=== PATIENT | female | born 1985 | race American Indian/Alaskan Native ===

== ENCOUNTER 2016-05-16 19:43 | Inpatient (IN) | payer OTHER ==
[2016-05-16] MEDS ORDERED: cefOXitin IV 2 gm in Dextrose 50 ML IVPB ONE (20:15)
[2016-05-16] MEDS: Lactated Ringer's 1,000 ML IV SCH (20:15)
[2016-05-16] MEDS ORDERED: Sodium Citrate/Citric Acid 15 ml Sol PO ONE (20:18)
--- NOTE | 2016-05-16 20:28 | OBADHP ---
Datetime: 05/16/2016 20:12 IP Adm Impression Other: 2 previous csection Admit Comment, IP Provider: chief complaint-contractions HPI 30 y/o at 38 wga here with c/o abdominal pain on_ff through the day.Patient felt it makeda aponte hence she came in for evaluation course -uncomplicated as per patient; hx of deliveryx2 PMH congenita; heart murmur PSH csectionx2 OBGYN HX ; delivery at 35 weeks via csection.Infant weighed 4.12 pounds; de livery at 36 weeks . weighed 5.9 pounds Social hx denies tobacco,alcohol or illicit drug use Exam see exam section FHT 150S, mod inna, +decel for 7 min.patient position chnaged, oxygen given and patient examined.ce rvix 2 cm dilated.patient turned to both right lateral and left lateral position and then put in tren [place] position.OR opened.FHR back to baseline of 150s.Anesthesia in room.fhr back to baseline fo 150s with moderate variability A/P 30 y/o at 38 wga, with 2 previous csections here with c/o abdominal pain.Early labor -admit -see orders Pelvic Type - PN: Adequate Extremities - PN: Normal Abdomen - PN: Normal Back - PN: Normal Lungs - PN: Normal Heart - PN: Normal Neurologic - PN: Normal General - PN: Normal IP Fetus A Comments: decel for 7 min FHR - Baseline A Provider: 150 Gestation - Est Wks by US: 38.0 IP Hx Assessment: The History has been Reviewed and is Current Vital Signs Provider: Reviewed IP Chief Complaint: Uterine contractions NICHD Variability Prov Fetus A: Moderate 6-25bpm Dilatation, Provider: 2 Effacement, Provider: 70 Station, Provider: -2 Genitourinary Exam: Normal DTRs - PN: Normal EGA AdmitDate IP: 38.0 IP Adm Impression: Term, intrauterine ; Active labor IP Admit Plan: Admit to unit; Initiate Section protocol Datetime: 03/26/2016 13:22 Breast - PN: Normal Membranes, Provider: Intact Contraction Comments Provider: none Comments, ACOG Physical Exam: Abd: Soft, NT, Bs- present NICHD Accel Fetus A IP Provider: [id number] FHR Category Provider Fetus A: Category I NICHD Decel Fetus A IP Provider: None
[2016-05-16 20:36] LABS: BASO % 0.5 % (0.0-2.0); EOS % 0.4 % (0.0-4.0); HEMATOCRIT 31.3 % (34.0-47.0); LYMPH % 23.5 % (20.0-40.0); MEAN CORPUSCULAR HEMOGLOBIN 26.8 pg (27.0-31.0); MEAN CORPUSCULAR HGB CONC 32.5 g/dL (33.0-37.0); MEAN PLATELET VOLUME 8.7 fL (7.2-11.7); MONO # 0.9 K/uL (0.0-0.8); MONO % 10.7 % (0.0-10.0); NRBC % 0.1 % (0.0-2.0); RED CELL DISTRIBUTION WIDTH 14.5 % (11.5-14.5); WHITE BLOOD COUNT 8.4 K/uL (4.8-10.8)
[2016-05-16 20:39] LABS: MEAN CELL VOLUME 82.5 fL (81.0-99.0)
[2016-05-16 20:41] LABS: CHLORIDE 100 mmol/L (98-107); POTASSIUM 3.6 mmol/L (3.6-5.2); SODIUM 136 mmol/L (132-148)
[2016-05-16 20:43] LABS: ALB/GLOB RATIO 1.1 (1.0-2.1); AST/SGOT 18 U/L (14-36); BILIRUBIN,TOTAL 0.2 mg/dL (0.2-1.3); CARBON DIOXIDE 22 mmol/L (22-30); GFR AFRICAN-AMERICAN > 60; TOTAL PROTEIN 7.4 g/dL (6.3-8.3)
[2016-05-16 20:44] LABS: ALKALINE PHOSPHATASE 142 U/L (38-126); ALT/SGPT 8 U/L (9-52); BLOOD UREA NITROGEN 5 mg/dL (7-17); CALCIUM 8.9 mg/dl (8.6-10.4); GLUCOSE,RANDOM 77 mg/dL (65-105)
[2016-05-16 20:51] LABS: RBC URINE < 1 /hpf (0-3); URINE BACTERIA OCC (<OCC); URINE BILIRUBIN NEGATIVE (NEGATIVE); URINE BLOOD NEGATIVE (NEGATIVE); URINE COLOR Yellow (YELLOW); URINE GLUCOSE (UA) NORMAL (Normal); URINE KETONE TRACE mg/dL (NEGATIVE); URINE LEUKOCYTE ESTERASE TRACE Leu/uL (Negative); URINE PROTEIN NEGATIVE (NEGATIVE); URINE UROBILINOGEN NORMAL mg/dL (0.2-1.0); WBC URINE 2 /hpf (0-5)
[2016-05-16] MEDS ORDERED: Oxycodone/Acetaminophen 5/325 mg Tab PO PRN (21:09)
[2016-05-16] MEDS ORDERED: Naloxone 0.4 mg/ml Inj (Adult) IVP PRN (22:23)
[2016-05-17] MEDS: Simethicone 80 mg Chewtab PO SCH ×5 (03:24→21:44)
[2016-05-17] MEDS: cefOXitin IV 2 gm in Dextrose 50 ML IVPB SCH ×3 (03:38→20:06)
--- NOTE | 2016-05-17 07:23 | OP ---
PROCEDURE DATE: 05/16/2016 PREOPERATIVE DIAGNOSES: 1. Two previous sections, in labor. 2. at 38 weeks gestational age. POSTOPERATIVE DIAGNOSES: 1. Two previous sections, in labor. 2. at 38 weeks gestational age. PROCEDURE PERFORMED: Repeat low transverse section. SURGEON: Ta Allan MD ENVIRONMENTAL ISSUES INSTRUCTOR: Manohar Ladd MD. Please note that the procedure required a surgical supervisor to assist with the entry into the abdominal cavity, to assist with the delivery of the infant and to assist wit h the closure of the abdominal tissues. The surgical supervisor was present and scrubbed for the enti re duration of the procedure. ANESTHESIA: Spinal. ANESTHESIOLOGIST: Gui Cintron MD COMPLICATIONS: None. ESTIMATED BLOOD LOSS: 700 mL. FINDINGS: A female infant in vertex presentation with Apgars of 9 at one minute and 9 at five minute s. Normal uterus, tubes, and ovaries bilaterally. SPECIMEN: Placenta and cord blood. PROCEDURE IN DETAIL: The patient is a 30-year-old female with history of 2 previous section s who presented at 38 weeks gestational age in labor. The patient also had decel on admission which resolved after that. The patient was thereafter taken for repeat low transverse section, af ter informed consent was obtained and signed. Once in the OR, the spinal anesthesia was administered by the anesthesia team and the patient was placed in dorsal supine position with a leftward tilt. T he patient had already had a Santana catheter placed transurethrally prior to coming to the OR. Once i t was found that she had adequate anesthesia, she was prepped and draped in the usual sterile manner. A Pfannenstiel skin incision was then made with the scalpel and carried down to the underlying laye r of the fascia with the help of the Bovie. The fascia was then incised in the midline and the incis ion was extended laterally with the help of electrocautery. The superior aspect of the fascial incis ion was then grasped with Alessandro clamps, elevated, and the underlying rectus muscles dissected off. Attention was then turned to the inferior aspect of the fascial incision which was similarly grasped with Alessandro clamps, elevated, and the underlying rectus muscles dissected off. The rectus muscles we re in the midline and the peritoneum was entered bluntly. The peritoneum was stretched and the vesicouterine peritoneum was identified. A transverse incision was made over the vesicouterine peritoneum with the help of the Metzenbaum scissors, and this incision was extended laterally with th e help of Metzenbaum scissors. The bladder flap was created sharply. A transverse incision was made over the lower uterine segment with the help of a fresh scalpel and this incision was extended later ally with the help of bandage scissors. The membranes were then ruptured and the infant's head was t hen delivered atraumatically. Nuchal x 1 around neck was found, which was reduced and the body and t he shoulders were delivered without any difficulty. The cord was then clamped and cut while the nose and the mouth were suctioned. The was handed over to the waiting pediatricians. The placent a was then manually removed. The uterus was then exteriorized and cleared of all clots and debris. The uterine incision was repaired with 0 Polysorb in a running-locked fashion. A second layer of shantanu e suture was used to imbricate the first layer and also to obtain hemostasis. Adequate hemostasis wa s noted from the uterine incision repair site. The uterus was returned to the patient's abdomen afte r irrigating and suctioning the patient's abdomen. The uterine incision was inspected for hemostasis and bleeding was noted from the midsection of the repair. This was suture ligated using figure-of-e ight stitches of 0 Biosyn. Adequate hemostasis was now noted from the uterine incision repair site. The bladder flap was inspected for hemostasis and adequate hemostasis was noted from it. The perito neum was closed with 2-0 Polysorb in a running fashion. The muscle layer was reapproximated with 2-0 Polysorb in a continuous manner. The fascia was closed with 0 Vicryl in a running fashion. The sub cutaneous tissue was then irrigated and suctioned and the bleeding points were cauterized. The subcu taneous tissue was reapproximated using 2-0 Polysorb in a continuous manner. The skin was then close d with 4-0 Monocryl in a subcuticular manner, then Steri-Strips were applied over the skin incision. The patient was thereafter cleaned and taken to the recovery room in stable condition. The sponge, lap, needle, and instrument count was correct x 3 as reported to me. Ta Allan MD cc: [id number] TT: 05/17/2016 07:23:25 mn
[2016-05-17 07:36] LABS: BASO % 0.2 % (0.0-2.0); EOS % 0.2 % (0.0-4.0); HEMATOCRIT 26.5 % (34.0-47.0); LYMPH # 1.1 K/uL (1.0-4.3); LYMPH % 10.7 % (20.0-40.0); MEAN CELL VOLUME 81.9 fL (81.0-99.0); MEAN CORPUSCULAR HEMOGLOBIN 26.6 pg (27.0-31.0); MEAN CORPUSCULAR HGB CONC 32.5 g/dL (33.0-37.0); MEAN PLATELET VOLUME 8.5 fL (7.2-11.7); MONO # 0.8 K/uL (0.0-0.8); MONO % 7.8 % (0.0-10.0); RED CELL DISTRIBUTION WIDTH 14.4 % (11.5-14.5); WHITE BLOOD COUNT 10.5 K/uL (4.8-10.8)
--- NOTE | 2016-05-17 08:20 | OBPPN ---
Datetime: 05/17/2016 08:12 PP Pain Prov: Within normal limits PP Nausea Prov: Denies PP Flatus Prov: No PP BM Prov: No PP Breasts Prov: Normal PP Heart Prov: Normal PP Lungs Prov: Normal PP Abdomen/Uterus Prov: Normal PP Lochia Prov: Normal PP Vulva/Perineum Prov: Not Done PP CVA Tenderness Prov: Normal PP Extremities Prov: Normal PP C/S Incision Prov: Normal PP Progress Prov: Normal PP Comments Phys Exam Prov: Skin: warm, dry, intact HEENT: Full ROM Breasts: not engorged Lungs: CTA bilaterally CArdiac: RRR, normal S1. S2 Abdomen: softly distended. (+) ABS. Fundus firm, mobile, appropriate and mildy tender, at umbilicu s. Dressing - clean and dry. Moderate lochia rubra Extremities: venodynes in place. 2+ pedal edema bilaterally All other systems reviewed and are negative PP Impression Prov: Normal progression PP Plan Prov: Continue present management PP Progress Note Prov: Patient received in bed, room 460 - in good spirits. (+) incisional pain, con trolled with LEAD EMBEDDED SOFTWARE ENGINEER; pain scale 4/10. Denies nausea or vomiting. Not yet out of bed to ambulate. +/- hun gry. Breast- and bottlefeeding P.E.: as above. Awake, alert, oriented to time, person and place. Pleaasant and cooperative. FOB a nd in room. - POD#1 H/H 8.6/26.5 Assessment: POD#1 30 yo P1203, S/P urgent repeat C/S for NRFHRT at 39 weeks, h/o previous del via 2 prev C/S. Decrease in H/H noted; pateitn anemic on admission; admitting Hct 10/3. Afebrile, vital signs noted. Patient counseled on ambulation and advancement of diet and iron supplementation. Patient is clinically stable. Plan: 1) Iron supplementation - TID 2) Continue post op care 3) CBC in AM
[2016-05-17] MEDS: Prenatal Multivit/Folic Acid/Iron Tab PO SCH (09:39)
[2016-05-17] MEDS: Lactated Ringer's 1,000 ML IV SCH (11:55)
--- NOTE | 2016-05-17 14:42 | CARD ---
APPROVED REPORT EKG Measurement Heart [id number] CT 148P36 [id number] <Conclusion> Sinus tachycardia with frequent premature ventricular complexes in a pattern of bigeminy Otherwise normal ECG
[2016-05-17] MEDS: Oxycodone/Acetaminophen 5/325 mg Tab PO PRN ×2 (16:58→21:46)
[2016-05-18] MEDS: Oxycodone/Acetaminophen 5/325 mg Tab PO PRN ×4 (03:47→21:15)
[2016-05-18 07:19] LABS: BASO % 0.3 % (0.0-2.0); EOS # 0.1 K/uL (0.0-0.7); EOS % 0.7 % (0.0-4.0); LYMPH # 1.1 K/uL (1.0-4.3); LYMPH % 10.4 % (20.0-40.0); MEAN CELL VOLUME 81.8 fL (81.0-99.0); MEAN PLATELET VOLUME 8.3 fL (7.2-11.7); MONO # 0.9 K/uL (0.0-0.8); MONO % 9.1 % (0.0-10.0); RED CELL DISTRIBUTION WIDTH 14.2 % (11.5-14.5); WHITE BLOOD COUNT 10.4 K/uL (4.8-10.8)
[2016-05-18] MEDS: Prenatal Multivit/Folic Acid/Iron Tab PO SCH (09:30)
[2016-05-18] MEDS: Simethicone 80 mg Chewtab PO SCH ×4 (09:30→21:39)
--- NOTE | 2016-05-18 10:52 | OBPPN ---
Datetime: 05/18/2016 09:24 PP Pain Prov: Within normal limits PP Nausea Prov: Denies PP Flatus Prov: Yes PP BM Prov: No PP Breasts Prov: Abnormal PP Heart Prov: Normal PP Lungs Prov: Normal PP Abdomen/Uterus Prov: Normal PP Lochia Prov: Normal PP Vulva/Perineum Prov: Not Done PP CVA Tenderness Prov: Normal PP Extremities Prov: Normal PP C/S Incision Prov: Normal PP Progress Prov: Normal PP Comments Phys Exam Prov: Skin: warm, dry, intact HEENT: full ROM Breasts: cracked nipples, right >left Lungs: CTA bilaterally Cardiac: RRR, normal S1, S2 Abdomen: (+) ABS. Soft. Non distended. Fundus firm, mobile, appropriately tender. at umbilicus. Mi ld lochia rubra Extremities: 2+ bilateral edema. No calf tenderness, cyanosis or edema All other systems reviewed and are negative PP Impression Prov: Normal progression PP Plan Prov: Continue present management PP Progress Note Prov: Patient received in bed, room 460. exclusively; except the last 2 feeds due to cracked nipples. (+) incisional pain/lower abdominal pain, pain scale 7/10 - relieved with pain meds. Denies palpitations, chest pain, shortness of breath. Ambulating and voidning withou t difficulty. NO BM yet P.E.: As above. WD in NAD. Awake, alert, oriented to time, person and place. Pleasant and cooperat aura Assessment: POD#2 30 yo P3, S/P C/S #3. Afebrile, vital signs stable. Anemia - asymptomatic; hemod ynamicaly stable - on iron supplementation. Returning GI and functions. Clinically stable. Plan: 1) Continue present management 2) Anticipate discharge home 05/19/16 Vital Signs Provider PP: Reviewed; Within Normal Limits
[2016-05-19 00:23] VITALS: PULSE 95
[2016-05-19] MEDS: Oxycodone/Acetaminophen 5/325 mg Tab PO PRN ×2 (02:10→08:21)
--- NOTE | 2016-05-19 08:08 | OBPPN ---
Datetime: 05/19/2016 08:06 PP Pain Prov: Within normal limits PP Nausea Prov: Denies PP Flatus Prov: Yes PP BM Prov: Yes PP Abdomen/Uterus Prov: Normal PP Lochia Prov: Normal PP Extremities Prov: Normal PP C/S Incision Prov: Normal PP Comments Phys Exam Prov: fudus below umblicus ext no edema,no calf t incision clean and dry PP Impression Prov: Normal progression PP Plan Prov: Continue present management PP Progress Note Prov: pt was seen at bed side, pain under control,no n/v, tolerating deit,min lochi a, flatus+ pod#3 s/p dc home no sex motrin/percocet prn f/u in 2weeks Vital Signs Provider PP: Reviewed; Within Normal Limits
--- NOTE | 2016-05-19 08:10 | OBDCSUM ---
Datetime: 05/19/2016 08:07 Discharged to, Provider: Home Follow up at, Provider: 2week Disch Instr Activity: Normal activity Disch Instr Diet: Regular Discharge Diagnosis, Provider: Term Delivered Follow up in weeks, Provider: clinic Disch Activity Restrictions: No exercising; No lifting; No driving; Minimize walking; Minimize stair -climbing; No sexual activity; Nothing in vagina - [place], tampons, douche Discharge Comment, Provider: no sex percocet/motrin prn f/u in 2week Discharge Diagnosis Prov Other: s/p c/s
[2016-05-19 08:32] VITALS: BP 122/78; RESP 18; TEMP 97.8; O2SAT 99
--- NOTE | 2016-05-19 08:33 | CP.PCM.DIS ---
Provider - Provider Date of Admission: 05/16/16 20:16 Attending physician: Ta Allan MD Time Spent in preparation of Discharge (in minutes): 35 Diagnosis - Discharge Diagnosis (1) Status post delivery Status: Acute Hospital Course - Lab Results Lab Results: Most Recent Lab Values WBC 10.4 K/uL (4.8-10.8) 05/18/16 07:10 RBC 3.31 Mil/uL (3.80-5.20) L 05/18/16 07:10 Hgb 8.9 g/dL (11.0-16.0) L 05/18/16 07:10 Hct 27.0 % (34.0-47.0) L 05/18/16 07:10 MCV 81.8 fL (81.0-99.0) 05/18/16 07:10 MCH 27.0 pg (27.0-31.0) 05/18/16 07:10 MCHC 33.0 g/dL (33.0-37.0) 05/18/16 07:10 RDW 14.2 % (11.5-14.5) 05/18/16 07:10 Plt Count 262 K/uL (130-400) 05/18/16 07:10 MPV 8.3 fL (7.2-11.7) 05/18/16 07:10 Neut % (Auto) 79.5 % (50.0-75.0) H 05/18/16 07:10 Lymph % (Auto) 10.4 % (20.0-40.0) L 05/18/16 07:10 [place] % (Auto) 9.1 % (0.0-10.0) 05/18/16 07:10 Eos % (Auto) 0.7 % (0.0-4.0) 05/18/16 07:10 Baso % (Auto) 0.3 % (0.0-2.0) 05/18/16 07:10 Neut # 8.3 K/uL (1.8-7.0) H 05/18/16 07:10 Lymph # 1.1 K/uL (1.0-4.3) 05/18/16 07:10 [place] # 0.9 K/uL (0.0-0.8) H 05/18/16 07:10 Eos # 0.1 K/uL (0.0-0.7) 05/18/16 07:10 Baso # 0.0 K/uL (0.0-0.2) 05/18/16 07:10 Sodium 136 mmol/L (132-148) 05/16/16 20:26 Potassium 3.6 mmol/L (3.6-5.2) 05/16/16 20:26 Chloride 100 mmol/L (98-107) 05/16/16 20:26 Carbon Dioxide 22 mmol/L (22-30) 05/16/16 20:26 Anion Gap 18 (10-20) 05/16/16 20:26 BUN 5 mg/dL (7-17) L 05/16/16 20:26 Creatinine 0.6 MG/DL (0.7-1.2) L 05/16/16 20:26 Est GFR ( Amer) > 60 05/16/16 20:26 Est GFR (Non-Af Amer) > 60 05/16/16 20:26 Random Glucose 77 mg/dL (65-105) 05/16/16 20:26 Calcium 8.9 mg/dl (8.6-10.4) 05/16/16 20:26 Total Bilirubin 0.2 mg/dL (0.2-1.3) 05/16/16 20:26 AST 18 U/L (14-36) 05/16/16 20:26 ALT 8 U/L (9-52) L D 05/16/16 20:26 Alkaline Phosphatase 142 U/L (38-126) H D 05/16/16 20:26 Total Protein 7.4 g/dL (6.3-8.3) 05/16/16 20:26 Albumin 3.8 g/dL (3.5-5.0) 05/16/16 20:26 Globulin 3.6 gm/dL (2.2-3.9) 05/16/16 20: Albumin/Globulin Ratio 1.1 (1.0-2.1) 05/16/16 20:26 Urine Color Yellow (YELLOW) 05/16/16 20:30 Urine Clarity Clear (Clear) 05/16/16 20:30 Urine pH 6.0 (5.0-8.0) 05/16/16 20:30 Ur Specific [place] 1.008 (1.003-1.030) 05/16/16 20:30 Urine Protein Negative mg/dL (NEGATIVE) 05/16/16 20:30 Urine Glucose (UA) Normal mg/dL (Normal) 05/16/16 20:30 Urine Ketones Trace mg/dL (NEGATIVE) 05/16/16 20:30 Urine Blood Negative (NEGATIVE) 05/16/16 20:30 Urine Nitrate Negative (NEGATIVE) 05/16/16 20:30 Urine Bilirubin Negative (NEGATIVE) 05/16/16 20:30 Urine Urobilinogen Normal mg/dL (0.2-1.0) 05/16/16 20:30 Ur Leukocyte Esterase Trace Seda/uL (Negative) 05/16/16 20:30 Urine WBC (Auto) 2 /hpf (0-5) 05/16/16 20:30 Urine RBC (Auto) < 1 /hpf (0-3) 05/16/16 20:30 Ur Squamous Epith Cells 5 /hpf (0-5) 05/16/16 20:30 Urine Bacteria Occ (<OCC) H 05/16/16 20:30 Urine Opiates Screen Negative (NEGATIVE) 05/16/16 20:30 Urine Methadone Screen Negative (NEGATIVE) 05/16/16 20:30 Ur Barbiturates Screen Negative (NEGATIVE) 05/16/16 20:30 Ur Phencyclidine Scrn Negative (NEGATIVE) 05/16/16 20:30 Ur Amphetamines Screen Negative (NEGATIVE) 05/16/16 20:30 U Benzodiazepines Scrn Negative (NEGATIVE) 05/16/16 20:30 U Oth Cocaine Metabols Negative (NEGATIVE) 05/16/16 20:30 U Cannabinoids Screen Negative (NEGATIVE) 05/16/16 20:30 RPR Nonreactive (NONREACTIVE) 05/16/16 20:26 Blood Type AB POSITIVE 05/16/16 20:26 Antibody Screen Negative 05/16/16 20:26 - Hospital Course Hospital Course: On admission: 30 year old female at 38 wga presented with complaints of abdominal pain on and off through the day. Patient noted increasing intensity and thus came for evaluation. Patient denies complications associated with this course. Patient admitted for monitoring. Hospital Course: Patient admitted to Labor and delivery and monitored. Patient had delivery due to non reassuring heart monitoring changes noted. Patient noted to be anemic and thus supplemented with ferrous sulfate. Patient monitored and pain controlled appropriately. Patient clinically stable for discharge with instructions for follow up and daily care provided. Patient to follow up in clinic within the next two weeks. Patient instructed to take iron supplement twice a day and then pain medications only as needed. This is a brief summary of events. For a complete course, refer to the medical record. Discharge Exam - Head Exam Head Exam: ATRAUMATIC - Eye Exam Eye Exam: EOMI, Normal appearance, PERRL Pupil Exam: NORMAL ACCOMODATION, PERRL - Neck Exam Neck exam: Full Rom - Respiratory Exam Respiratory Exam: absent: Wheezes - Cardiovascular Exam Cardiovascular Exam: REGULAR RHYTHM, +S1, +S2 - GI/Abdominal Exam GI & Abdominal Exam: Guarding, Soft, Tenderness (appropriately tender, fundal height 1 finger breadth below umbilicus) - Extremities Exam Extremities exam: full ROM, pedal edema (1+ edema; decreased from yesterday), pedal pulses present - Back Exam Back exam: FULL ROM - Neurological Exam Neurological exam: Alert, CN II-XII Intact, Oriented x3 - Psychiatric Exam Psychiatric exam: Normal Affect, Normal Mood - Skin Skin Exam: Intact, Normal Color, Warm Discharge Plan - Follow Up Plan Condition: GOOD Disposition: HOME/ ROUTINE
--- NOTE | 2016-06-09 09:16 | OBDS ---
DELIVERY PERSONNEL Nurse Logging Equipment Operator Certified: N/A Delivery Doctor: Paulina Allan MD Scrub Nurse: Brigitte Potts Quality Engineering Manager: Mag Randall RN Anesthesiologist: Libby Cintron MD Waiter/Waitress Informal: JAGDISH Resident: N/Alondra MATERNAL INFORMATION Delivery Anesthesia: Spinal Medications in Delivery: PITOCIN 20 UNITS IN 1 L LR Estimated Blood Loss (ml): 700 Placenta Cultured: No Maternal Complications: None RN Comments: PT CAME TO UNIT C/O CONTRACTIONS Hx PREVIOUS C/S X2 PT IS FOR REPEAT C/S FOR NON REASSU RING STATUS. Provider Comments: repeat csection done for hx of 2 previous csection in labor apgars 9/9 at 1 and 5min of life ebl 700c LABOR SUMMARY EDC: 05/30/2016 00:00 No. Babies in Womb: 1 Attempted: N/A Labor Anesthesia: SPINAL LABOR INFORMATION Reason for Induction: Not Applicable Reason for Induction Other: N/A Onset of Labor: 05/16/2016 16:00 Other Ripening Agents: N/A Oxytocin: N/A Group B Beta Strep: Not Done Antibiotics # of Doses: 1 Antibiotics Time of Last Dose: 20:32 Steroids Given: None Reason Steroids Not Administered: Not Applicable Other Reason Not Administered: TERM BABY MEMBRANES Membranes Rupture Method: Artificial Rupture of Membranes: 05/16/2016 21:37 Length of Rupture (hrs): 0.02 Amniotic Fluid Color: Bloody Amniotic Fluid Amount: Moderate Amniotic Fluid Odor: Normal STAGES OF LABOR Stage 3 hrs: 0 Stage 3 min: -58 Total Time in Labor hrs: 4 Total Time in Labor min: 40 VAGINAL DELIVERY Episiotomy: None Laceration Extension: N/A Laceration Type: None CSECTION DELIVERY Primary Indication: Repeat Elective Other Primary Indication: term CSection Urgency: Emergency CSection Incidence: Repeat Labor: Labor Elective: Elective CSection Incision: Lower Uterine Transverse BABY A INFORMATION Infant Delivery Date/Time: 05/16/2016 21:38 Method of Delivery: Born in Route : No : N/A Forceps: N/A Vacuum Extraction: N/A Shoulder Dystocia : No SHOULDER DYSTOCIA BABY A Infant Delivery Date/Time: 05/16/2016 21:38 PRESENTATION/POSITION BABY A Presentation: Cephalic Cephalic Presentation: Vertex Vertex Position: Left Occipital Posterior Breech Presentation: n/a PLACENTA INFORMATION BABY A Placenta Delivery Time : 05/16/2016 20:40 Placenta Method of Delivery: Manual Removal Placenta Status: Delivered SCORES BABY A Heart Rate 1 min: >100 bpm Resp Effort 1 min: Good Cry Reflex Irritability 1 min: Cough or Sneeze or Pulls Away Muscle Tone 1 min: Active Motion Color 1 min: Body [place], Extremities Blue Resuscitation Effort 1 min: N/A SCORE 1 MIN: 9 Heart Rate 5 min: >100 bpm Resp Effort 5 min: Good Cry Reflex Irritability 5 min: Cough or Sneeze or Pulls Away Muscle Tone 5 min: Active Motion Color 5 min: Body [place], Extremities Blue Resuscitation Effort 5 min: N/A SCORE 5 MIN: 9 INFANT INFORMATION BABY A Gestational Age at Delivery: 38.0 Gestational Status: Term Outcome : Liveborn Infant Condition : Stable Infant Sex: Female IDENTIFICATION/MEDS BABY A ID Band Number: [id number] ID Band Location: Left Leg; Left Arm Sensor Applied: Yes Sensor Number: [id number] Sensor Location : Cord Clamp Vitamin K Given : Not Given Erythromycin Given: Not Given WEIGHT/LENGTH BABY A Infant Birthweight (gms): 3355 Infant Weight (lb): 7 Weight (oz): 6 Infant Length Inches: 19.50 Infant Length cms: 49.5 CORD INFORMATION BABY A No. Cord Vessels: 3 Nuchal Cord : Around Neck x1, Tight Nuchal Cord Other: 0 True Knot: 0 Cord Blood Taken: Yes Suction: None ASSESSMENT BABY A Infant Complications: None Physical Findings at Delivery: Within Normal Limits Infant Respirations: Appears Normal Pattern Marking Supervisor/ALS Called : Yes Care By: DR SMITH Transferred To: [facility]
== END 2016-05-19 16:20 | disposition home or self-care (01) | DRG 370 ==
LOC: C.EROB 19:43 → C.4D 20:16 → C.4M 05-17 01:25
PROVIDERS: ADMIT Student in an Organized Health Care Education/Training Program; ATTEND Student in an Organized Health Care Education/Training Program
PROC: 10D00Z1 Extraction of Products of Conception, Low, Open Approach (ICD-10-PCS; principal; 2016-05-16)
DX: O34.211 Maternal care for low transverse scar from previous cesarean delivery (principal); O75.82 Onset (spontaneous) of labor after 37 completed weeks of gestation but before 39 completed weeks gestation, with delivery by (planned) cesarean section; O76 Abnormality in fetal heart rate and rhythm complicating labor and delivery; O99.02 Anemia complicating childbirth; D64.9 Anemia, unspecified; Z3A.38 38 weeks gestation of pregnancy; Z37.0 Single live birth